=== PATIENT | male | born 1970 | race African-American/Black ===

== ENCOUNTER 2018-01-13 09:11 | Emergency (ER) | payer OTHER ==
[~2018-01-13] VITALS: Ht 188 cm; Wt 65.8 kg
[2018-01-13 10:03] VITALS: BP 117/65
== END 2018-01-13 09:30 | disposition home or self-care (01) ==
LOC: ER 09:15
DX: J06.9 Acute upper respiratory infection, unspecified (principal); J45.909 Unspecified asthma, uncomplicated
CPT/HCPCS: A4663